=== PATIENT | male | born 1970 | race Caucasian/White ===

== ENCOUNTER 2019-06-28 12:37 | Emergency (ER) | payer OTHER ==
--- NOTE | 2019-06-28 13:16 | ED ---
Recheck HPI - General Chief Complaint: Recheck/Abnormal Lab/Rx Stated Complaint: elevated BP Time Seen by Provider: 06/28/19 12:40 Source: patient Mode of arrival: ambulatory Limitations: no limitations - History of Present Illness Initial Comments: The patient is a 48-year-old male past history of hypertension presents emergency room with reported right ear pain. He states that he had nasal congestion which then progressed to right-sided ear pain over the past 2 days. He admits to having frequent ear infections as a kid. He did have tympanostomy tubes. States he's been taking Mucinex for his symptoms. He went to urgent care today to be evaluated for an ear infection. They did not do anything for him but referred him to the emergency room in with high blood pressure. CT supposed be on lisinopril-Hydrochlorothiazide 20/12.5 mg - two pills once a day however he recently moved to the area and has yet to establish care by primary care physician. He has been out of medications for approximate 2 months. Denies any symptoms of high blood pressure. Denies headaches or visual changes. No chest pain or shortness of breath. States he did have these when he was originally started on his high blood pressure medication has been thoroughly evaluated. Also states he had a cardiology evaluation was told has been reviewed [facility]. Denies any palpitations at this time. There are no other alleviating, precipitating or modifying factors - Related Data Home Medications Medication Instructions Recorded Confirmed Ibuprofen [Advil] 400 mg PO Q8HR PRN 06/28/19 06/28/19 Multivitamins, Thera [Multivitamin 1 tab PO DAILY 06/28/19 06/28/19 (formulary)] guaiFENesin [Mucinex] 600 mg PO Q12H PRN 06/28/19 06/28/19 Previous Rx's Medication Instructions Recorded Amoxicillin 875 mg PO Q12HR #20 tablet 06/28/19 Lisinopril-Hctz 20-12.5 mg 2 tab PO DAILY #60 tab 06/28/19 [Zestoretic 20-12.5] Allergies Allergy/AdvReac Type Severity Reaction Status Date / Time No Known Allergies Allergy Verified 06/28/19 14:07 Review of Systems ROS Statement: Those systems with pertinent positive or pertinent negative responses have been documented in the HPI. ROS Other: All systems not noted in ROS Statement are negative. Past Medical History Past Medical History: Hypertension History of Any Multi-Drug Resistant Organisms: None Reported Past Surgical History: Ear Surgery Past Psychological History: No Psychological Hx Reported Smoking Status: Current every day smoker Past Alcohol Use History: Occasional Past Drug Use History: None Reported General Exam Limitations: no limitations General appearance: alert, in no apparent distress Head exam: Present: atraumatic, normocephalic, normal inspection Eye exam: Present: normal appearance, PERRL, EOMI. Absent: scleral icterus, conjunctival injection, periorbital swelling ENT exam: Present: normal exam, mucous membranes moist, other (right TM is red, buldging. No perforations noted. No mastoid tenderness. ) Neck exam: Present: normal inspection. Absent: tenderness, meningismus, lymphadenopathy Respiratory exam: Present: normal lung sounds bilaterally. Absent: respiratory distress, wheezes, rales, rhonchi, stridor Cardiovascular Exam: Present: regular rate, normal rhythm, normal heart sounds. Absent: systolic murmur, diastolic murmur, rubs, gallop, clicks GI/Abdominal exam: Present: soft, normal bowel sounds. Absent: distended, tenderness, guarding, rebound, rigid Extremities exam: Present: normal inspection, full ROM, normal capillary refill. Absent: tenderness, pedal edema, joint swelling, calf tenderness Back exam: Present: normal inspection Neurological exam: Present: alert, oriented X3, CN II-XII intact Psychiatric exam: Present: normal affect, normal mood Skin exam: Present: warm, dry, intact, normal color. Absent: rash Course Vital Signs 06/28/19 06/28/19 06/28/19 12:37 13:35 13:55 Temperature 97.9 F 98.0 F Pulse Rate 85 75 75 Respiratory 21 18 18 Rate Blood Pressure 209/123 190/116 179/111 O2 Sat by Pulse 100 99 98 Oximetry Medical Decision Making - Medical Decision Making Upon arrival the patient was placed into room 14. A thorough history and physical exam was performed. The patient had markedly elevated blood pressures. He states this is chronic for him as he is not on his blood pressure med ications. He is requesting a dose of his home medication however does not want any further workup for it as he was hospitalized previously and had a thorough workup. He is requesting treatment for his ear pain. Examination does reveal a right otitis media. I will provide the patient with a prescription for amoxicillin. Take the medications as directed. To follow up with his primary care physician. I will refill his home medications. Provided him with information for the [facility] for his diagnosis of [id number]. Return to the emergency room for any new or worsening symptoms. Patient was discharged home in stable condition - EKG Data EKG Comments: EKG demonstrates a normal sinus rhythm with a ventricular rate 76. ME interval 126. QRS 104. QTC of 456. There is a slurred upstroke consistent with a delta wave in V2 through V4. Also in aVL. No acute ST segment elevations or depressions concerning for ischemic changes Disposition Clinical Impression: Encounter for medication refill, Hypertension, Right otitis media Disposition: HOME SELF-CARE Condition: Stable Additional Instructions: Please follow-up with your primary care doctor in 2-4 days. Return to the emergency room for any new or worsening symptoms Prescriptions: Amoxicillin 875 mg PO Q12HR #20 tablet Lisinopril-Hctz 20-12.5 mg [Zestoretic 20-12.5] 2 tab PO DAILY #60 tab Is patient prescribed a controlled substance at d/c from ED?: No Referrals: None,Stated [Primary Care Provider] - 1-2 days [facility] [Provider Group] - 1-2 days Time of Disposition: 13:42
[2019-06-28] MEDS ORDERED: LISINOPRIL-HCTZ 20-12.5 MG 1 EACH TAB PO STA (13:34)
[2019-06-28 13:37] VITALS: PULSE 75; RESP 18
[2019-06-28 13:55] VITALS: BP 179/111; TEMP 98
== END 2019-06-28 13:55 | disposition home or self-care (01) ==
LOC: EC 12:37
DX: Z76.0 Encounter for issue of repeat prescription (principal); I10 Essential (primary) hypertension; H66.91 Otitis media, unspecified, right ear; F17.200 Nicotine dependence, unspecified, uncomplicated; Z96.22 Myringotomy tube(s) status
CPT/HCPCS: 99283

== ENCOUNTER 2019-10-27 13:39 | Emergency (ER) | payer OTHER ==
[2019-10-27 13:44] VITALS: BP 148/89; PULSE 99; RESP 18; TEMP 98.6
--- NOTE | 2019-10-27 13:57 | ED ---
ENT HPI - General Source: patient Mode of arrival: ambulatory Limitations: no limitations <Kourtney Beatty - Last Filed: 10/27/19 14:33> <Julissa Anderson - Last Filed: 10/30/19 01:34> - General Chief complaint: Dental/Oral Stated complaint: dental pain Time Seen by Provider: 10/27/19 13:44 - History of Present Illness Initial comments: 48-year-old male presenting today for chief complaint of left upper dental pain. Patient states that he has left upper dental pain x 2-3 days. Patient swelling below the tongue of neck, difficulty opening mouth or swallowing. Denies headaches, eye swelling. Admits to mild left sided facial swelling. Denies nausea, vomiting, fevers, general malaise. Patient denies additional complaints. Upon arrival patient appears well there is no signs of acute distress. (Kourtney Beatty) - Related Data Home Medications Medication Instructions Recorded Confirmed Ibuprofen [Advil] 400 mg PO Q8HR PRN 06/28/19 06/28/19 Multivitamins, Thera [Multivitamin 1 tab PO DAILY 06/28/19 06/28/19 (formulary)] guaiFENesin [Mucinex] 600 mg PO Q12H PRN 06/28/19 06/28/19 Previous Rx's Medication Instructions Recorded Amoxicillin 875 mg PO Q12HR #20 tablet 06/28/19 Lisinopril-Hctz 20-12.5 mg 2 tab PO DAILY #60 tab 06/28/19 [Zestoretic 20-12.5] Amoxic-Pot Clav 875-125Mg 1 tab PO Q12HR 7 Days #14 tab 10/27/19 [Augmentin 875-125] Allergies Allergy/AdvReac Type Severity Reaction Status Date / Time No Known Allergies Allergy Verified 10/27/19 13:41 Review of Systems ROS Other: All systems not noted in ROS Statement are negative. <Kourtney Beatty - Last Filed: 10/27/19 14:33> ROS Other: All systems not noted in ROS Statement are negative. <Julissa Anderson - Last Filed: 10/30/19 01:34> ROS Statement: Those systems with pertinent positive or pertinent negative responses have been documented in the HPI. Past Medical History Past Medical History: Hypertension History of Any Multi-Drug Resistant Organisms: None Reported Past Surgical History: Ear Surgery Additional Past Surgical History / Comment(s): cyst removed from tailbone Past Psychological History: No Psychological Hx Reported Smoking Status: Current every day smoker Past Alcohol Use History: Occasional Past Drug Use History: None Reported <Kourtney Beatty - Last Filed: 10/27/19 14:33> General Exam Limitations: no limitations <Kourtney Beatty - Last Filed: 10/27/19 14:33> - General Exam Comments Initial Comments: General: The patient is awake and alert, in no distress, and does not appear acutely ill. Eye: Pupils are equal, round and reactive to light, extra-ocular movements are intact. No nystagmus. There is normal conjunctiva bilaterally. No signs of icterus. Ears, nose, mouth and throat: There are moist mucous membranes and no oral lesions. Tolerated oral secretion tender to percussion of tooth #10 Neck: The neck is supple, there is no tenderness or JVD. No swelling of the neck below the angle of the mandible. No trismus Musculoskeletal: Normal ROM, no tenderness. Strength 5/5. Sensation intact. Radial pulses equal bilaterally 2+. Neurological: A&O x 3. CN II-XII intact grossly, There are no obvious motor or sensory deficits. Coordination appears grossly intact. Speech is normal. Skin: Skin is warm and dry and no rashes or lesions are noted. Psychiatric: Cooperative, appropriate mood & affect, normal judgment. (Kourtney Beatty) Course Vital Signs 10/27/19 13:42 Temperature 98.6 F Pulse Rate 99 Respiratory 18 Rate Blood Pressure 148/89 O2 Sat by Pulse 99 Oximetry Medical Decision Making <Kourtney Beatty - Last Filed: 10/27/19 14:33> <Julissa Anderson - Last Filed: 10/30/19 01:34> - Medical Decision Making 48-year-old male presenting today for chief complaint of dental pain. No evidence of abscess. Cannot rule out periapical abscess. Patient shows no signs of systemic spread of infection clinically nor Keo's angina. Patient is very mild facial swelling. Patient be discharged with Augmentin instruction to follow up with dentist and return parameters as discussed patient was discharged. While agreeable to this care plan. Patient appeared nontoxic (Kourtney Beatty) I was available for consultation in the emergency department. The history and physical exam were done by the midlevel provider. I was consulted for this patients care. I reviewed the case with the midlevel provider and based on their presentation of the patient, I agree with the assessment, medical decision making and plan of care as documented. Chart was dictated using [employer] dictation software. Attempts were made to correct any dictation errors however some typographical errors may persist. Patient was seen during a national state of emergency due to the Covid-19 pandemic. (Julissa Anderson) Disposition Is patient prescribed a controlled substance at d/c from ED?: No Time of Disposition: 14:06 <Kourtney Beatty - Last Filed: 10/27/19 14:33> <Julissa Anderson - Last Filed: 10/30/19 01:34> Clinical Impression: Pain, dental Disposition: HOME SELF-CARE Condition: Good Instructions (If sedation given, give patient instructions): Dental Abscess (ED) Additional Instructions: Please use medication as discussed. Please follow-up with dentist in next week for further evaluation and treatment, return for symptoms discussed-increasing pain/swelling, fevers, swelling of tongue/neck, difficulty swallowing or breathing. Please return to emergency room if the symptoms increase or worsen or for any other concerns. Prescriptions: Amoxic-Pot Clav 875-125Mg [Augmentin 875-125] 1 tab PO Q12HR 7 Days #14 tab Referrals: Shyam Ayoub MD [Primary Care Provider] - 1-2 days
[2019-10-27] MEDS ORDERED: AMOXIC-POT CLAV 875MG STARTER PACK 2 TAB BTL PO STA (14:06)
[2019-10-27] MEDS ORDERED: ACET/COD 300 MG/30 MG STARTER PACK 6 TAB BTL PO STA (14:06)
== END 2019-10-27 14:21 | disposition home or self-care (01) ==
LOC: EC 13:39
DX: K08.89 Other specified disorders of teeth and supporting structures (principal); R22.1 Localized swelling, mass and lump, neck; R22.0 Localized swelling, mass and lump, head; F17.200 Nicotine dependence, unspecified, uncomplicated
CPT/HCPCS: 99282

== ENCOUNTER → 2020-01-30 | Outpatient (CLI) | payer OTHER ==
--- NOTE | 2020-01-31 08:04 | US ---
EXAMINATION TYPE: US venous doppler duplex LE LT DATE OF EXAM: 01/30/2020 4:47 PM COMPARISON: NONE CLINICAL HISTORY: 49-year-old male M79.662 pain in left R22.42 swelling in left leg. Pain left leg SIDE PERFORMED: Left TECHNIQUE: The lower extremity deep venous system is examined utilizing real time linear array sonog felton with graded compression, doppler sonography and color-flow sonography. FINDINGS: VESSELS IMAGED: External Iliac Vein (EIV) Common Femoral Vein Deep Femoral Vein Greater Saphenous Vein * Femoral Vein Popliteal Vein Small Saphenous Vein * Proximal Calf Veins (* superficial vessels) Left Leg: Negative for DVT IMPRESSION: No evidence for DVT within the left lower extremity imaged from the groin to the upper calf.
== END | disposition home or self-care (01) ==
LOC: RADUSWWP 16:35
PROVIDERS: ATTEND Internal Medicine
DX: R22.42 Localized swelling, mass and lump, left lower limb (principal); M79.662 Pain in left lower leg

== ENCOUNTER → 2021-04-06 | Outpatient (CLI) | payer OTHER ==
--- NOTE | 2021-04-06 13:04 | XR ---
EXAM TYPE: LUMBAR SPINE X RAY SERIES COMPARISON: NONE HISTORY: Low back pain TECHNIQUE: 4 views are submitted. FINDINGS: There are a chronic appearing anterior wedge deformities of T11-T12. Anterior large hypertrophic spur s are seen at multiple levels and there is mild to moderate degenerative disc disease. IMPRESSION: 1. Multilevel hypertrophic and degenerative change with chronic appearing anterior wedge fractures T1 1 and T12 correlate clinically.
== END | disposition home or self-care (01) ==
LOC: RADXRMAIN 12:21
PROVIDERS: ATTEND Internal Medicine
DX: M47.816 Spondylosis without myelopathy or radiculopathy, lumbar region (principal); M48.54XA Collapsed vertebra, not elsewhere classified, thoracic region, initial encounter for fracture
CPT/HCPCS: 72110

== ENCOUNTER → 2021-06-08 | Outpatient (CLI) | payer OTHER ==
--- NOTE | 2021-06-09 09:27 | MR ---
EXAMINATION TYPE: MR tspine/lspine wo con DATE OF EXAM: 06/08/2021 COMPARISON: Plain film lumbar spine 04/06/2021 HISTORY: Middle/low back pain TECHNIQUE: Multiplanar, multisequence imaging of the thoracic and lumbar spine is performed without I V contrast. FINDINGS: Thoracic spine MRI: There is a kyphosis present. Multilevel spondylosis is present predominantly in the lower thoracic sp ine. Thoracic vertebral bodies show preserved height, there is endplate discogenic marrow signal hou ge, loss of disc height signal in the lower lumbar spine. There is no evident spinal stenosis or fora shara encroachment. Thoracic cord signal is maintained. Mild posterior disc herniation is present at T7-8, posterior disc bulge at T8-9, T10-11 in the right posterior paracentral location causing blas lateral mass effect on the thecal sac. Facet arthropathy changes are present in the lower thoracic sp ine. There is a mild spinal curvature. IMPRESSION: Degenerative disc disease, kyphosis with mild spinal curvature. Facet arthropathy. Lumbar spine MRI: Sagittal images of the lumbar spine show vertebral body heights and alignment to appear satisfactory. The intervertebral discs demonstrate normal heights and there is some loss of disc signal at L3-4, L 4-5 and L5-S1 consistent with disc desiccation. The conus medullaris is normal in position and signa l. The bone marrow signal intensity is within normal limits, some endplate discogenic marrow signal changes present with spondylosis greatest at L2-3, L1 to, T12-L1, kyphosis centered at the lower thor acic spine is again seen, mild anterior wedging at T12, T11 may be physiologic. No significant forami nal encroachment or spinal stenosis. Axial images show facet arthropathy at L5-S1, posterior disc bulge contacts anterior thecal sac and p ossibly the proximal S1 nerve roots. Probable hemangioma present within the L5 vertebral body. L4-5 shows a posterior disc bulge causing mild anterior mass effect on the thecal sac. Facet arthropa thy changes present, hypertrophy ligamentum flavum causes some minimal posterior lateral mass effect on the thecal sac. L3-4 also shows some minimal posterior disc bulge contacting the anterior thecal sac. L2-3 and L1-2 show no disc herniation. IMPRESSION: Degenerative disc disease and facet arthropathy.
== END | disposition home or self-care (01) ==
LOC: RADMRIMAIN 06:14
PROVIDERS: ATTEND Internal Medicine
DX: M51.36 Other intervertebral disc degeneration, lumbar region (principal); M47.816 Spondylosis without myelopathy or radiculopathy, lumbar region; M51.34 Other intervertebral disc degeneration, thoracic region; M40.204 Unspecified kyphosis, thoracic region; M43.8X4 Other specified deforming dorsopathies, thoracic region; M47.814 Spondylosis without myelopathy or radiculopathy, thoracic region
CPT/HCPCS: 72146; 72148